=== PATIENT | female | born 1990 | race African-American/Black ===

== ENCOUNTER 2016-12-07 07:54 | Emergency (ER) | payer SELFPAY ==
[~2016-12-07] VITALS: Ht 175.3 cm; Wt 102.0 kg
[~2016-12-07 07:54] MED LIST: AMOXICILLIN500 MG OR; AMOXICILLIN500 MG PO; BACTRIM DS1 TAB OR; BACTRIM DS1 TAB PO; BENADRYL 50MG C50 MG OR; CALNA PO; CEPHALEXIN500 MG OR; CEPHALEXIN500 MG PO; CIPROFLOXACN500 MG PO; CLARITIN10 MG OR; DOXYCYC MONO100 MG OR; LORTAB 10-325 M1 TAB PO; LORTAB 5 OR; LORTAB 7.57.5 MG PO; LORTAB5 PO; MACRODANTIN100 MG OR; NAPROSYN500 MG PO; NO CURRENT MEDS; NO HOME MEDS; PENICILLN VK500 MG OR; PHENERGAN PO; PRENATA8 PO; PRENATAL VIT1 TAB OR; SULFACET SOD10 % OD; TYLENOL & COD12.5 ML PO; TYLENOL500 MG OR; ULTRAM50 M1 PO; ULTRAM50 MG OR; ULTRAM50 MG PO; ZITHROMAX250 MG PO; ZITHROMAX500 MG PO; ZOFRAN4 MG/TAB PO; ZPAK PO
[2016-12-07] MEDS ORDERED: MOTRIN800 MG PO (08:48)
[2016-12-07 08:54] VITALS: BP 116/82
== END 2016-12-07 09:00 | disposition home or self-care (01) | DRG 605 ==
LOC: ED 07:54
DX: S90.122A Contusion of left lesser toe(s) without damage to nail, initial encounter (principal); W22.8XXA Striking against or struck by other objects, initial encounter

== ENCOUNTER 2017-02-16 22:48 | Emergency (ER) | payer SELFPAY ==
[~2017-02-16] VITALS: Ht 175.3 cm; Wt 102.5 kg
[~2017-02-16 22:48] MED LIST changes: +MOTRIN800 MG PO
[2017-02-16] MEDS ORDERED: AUGMENTIN875TAB PO (23:23)
[2017-02-16 23:49] VITALS: BP 124/77
== END 2017-02-16 23:49 | disposition home or self-care (01) | DRG 153 ==
LOC: ED 22:48
DX: J02.9 Acute pharyngitis, unspecified (principal); R50.9 Fever, unspecified; R53.81 Other malaise

== ENCOUNTER 2017-03-06 18:50 | Emergency (ER) | payer BC ==
[~2017-03-06] VITALS: Ht 175.3 cm; Wt 106.2 kg
[~2017-03-06 18:50] MED LIST changes: +AUGMENTIN875TAB PO
[2017-03-06] MEDS ORDERED: BACTRIM DS1 TAB PO (19:55)
[2017-03-06] MEDS ORDERED: ULTRAM50 M1 PO (19:55)
[2017-03-06 20:00] VITALS: BP 106/74
== END 2017-03-06 20:00 | disposition home or self-care (01) | DRG 607 ==
LOC: ED 18:50
PROC: 0X940ZZ Drainage of Right Axilla, Open Approach (ICD-10-PCS; principal; 2017-03-06)
DX: L73.2 Hidradenitis suppurativa (principal)

== ENCOUNTER 2017-05-18 06:15 | Emergency (ER) | payer BC ==
[~2017-05-18] VITALS: Ht 175.3 cm; Wt 106.8 kg
[2017-05-18 07:29] LABS: URINE BILIRUBIN - DIPSTICK NEGATIVE (NEGATIVE); URINE BLOOD DIPSTICK NEGATIVE (NEGATIVE); URINE CLARITY CLEAR; URINE COLOR YELLOW; URINE GLUCOSE - DIPSTICK NEGATIVE (NEGATIVE); URINE KETONE NEGATIVE (NEGATIVE); URINE LEUK ESTERASE NEGATIVE (NEGATIVE); URINE NITRITE - DIPSTICK NEGATIVE (Negative); URINE PROTEIN - DIPSTICK NEGATIVE (NEG-TRACE); URINE SPECIFIC GRAVITY 1.025; URINE UROBILINOGEN - DIPSTICK 0.2 E.U./dL (0.2)
[2017-05-18 07:30] LABS: HEMATOCRIT 39.9 % (37.0-47.0); HEMOGLOBIN 12.8 g/dl (12.0-16.0); IMMATURE GRANULOCYTES 0.4 % (0.0-1.0); MEAN CELL VOLUME 82.8 fL CALC (80.0-100.0); MEAN CORPUSCULAR HGB 26.6 pG CALC (26.0-32.0); MEAN CORPUSCULAR HGB CONC 32.1 g/L CALC (32.0-36.0); NEUT# 5.5 thou/uL (2.00-7.15); RED BLOOD COUNT 4.82 mill/uL (4.20-5.60); RED CELL DISTRI WIDTH 13.5 % (11.5-15.5)
[2017-05-18 07:34] LABS: ALBUMIN 4.2 g/dL (3.2-5.0); ALKALINE PHOSPHATASE 60 u/l (38-126); AMYLASE 110 u/l (30-110); ANION GAP 13 (6-22 (CALC)); BILIRUBIN, TOTAL 0.4 mg/dL (0.0-1.4); BUN 15 mg/dL (7-17); BUN/CREATININE RATIO 21 (12-20 (CALC)); CALCIUM 9.3 mg/dL (8.4-10.2); CARBON DIOXIDE 25 mmol/l (22-30); CHLORIDE 107 mmol/l (95-108); CREATININE 0.7 mg/dL (0.5-1.0); GFR > 60 ML/MIN (>=60 (CALC)); GFR FOR AFR.AMER. > 60 ML/MIN (>=60 (CALC)); GLUCOSE 86 mg/dL (65-105); LIPASE 94 u/l (23-300); POTASSIUM 4.3 mmol/l (3.5-5.1); SGOT/AST 23 u/l (14-36); SGPT/ALT 34 u/l (9-52); SODIUM 141 mmol/l (137-146); TOTAL PROTEIN 7.9 g/dL (6.3-8.2)
[2017-05-18] MEDS ORDERED: COLACE100 MG PO (08:16)
[2017-05-18 08:23] VITALS: BP 127/82
== END 2017-05-18 08:30 | disposition home or self-care (01) | DRG 392 ==
LOC: ED 06:15
PROVIDERS: Emergency Medicine
DX: R10.13 Epigastric pain (principal); K59.00 Constipation, unspecified

== ENCOUNTER 2024-06-03 22:21 | Emergency (ER) | payer OTHER ==
[~2024-06-03] VITALS: Ht 175.3 cm; Wt 107.0 kg
[~2024-06-03 22:21] MED LIST changes: +COLACE100 MG PO
[2024-06-03] MEDS ORDERED: KETOROLAC TROMETHAMINE 30 MG/ML SDV IM ONE (22:35)
[2024-06-03] MEDS ORDERED: NAPROXEN500 MG PO (23:31)
[2024-06-03] MEDS ORDERED: METHOCARBAMOL500 MG PO (23:31)
[2024-06-03 23:43] VITALS: BP 141/90
== END 2024-06-03 23:56 | disposition home or self-care (01) ==
LOC: ED 22:21
DX: S76.911A Strain of unspecified muscles, fascia and tendons at thigh level, right thigh, initial encounter (principal); X50.0XXA Overexertion from strenuous movement or load, initial encounter; Y93.F9 Activity, other caregiving; Y92.199 Unspecified place in other specified residential institution as the place of occurrence of the external cause; Y99.0 Civilian activity done for income or pay

== ENCOUNTER 2024-08-01 22:01 | Emergency (ER) | payer OTHER ==
[~2024-08-01] VITALS: Ht 170.2 cm; Wt 109.1 kg
[~2024-08-01 22:01] MED LIST changes: +METHOCARBAMOL500 MG PO; +NAPROXEN500 MG PO
[2024-08-01 23:23] VITALS: BP 166/124
[2024-08-01 23:25] VITALS: BP 134/96
[2024-08-01 23:30] VITALS: BP 134/96
[2024-08-01] MEDS ORDERED: KEFLEX500 MG PO (23:59)
[2024-08-02] MEDS ORDERED: DEXTROSE 10% 500 ML BAG IV ONE (23:55)
== END 2024-08-02 00:50 | disposition home or self-care (01) ==
LOC: ED 22:01
DX: S61.210A Laceration without foreign body of right index finger without damage to nail, initial encounter (principal); W26.0XXA Contact with knife, initial encounter

== ENCOUNTER 2024-10-12 01:26 | Emergency (ER) | payer OTHER ==
[~2024-10-12] VITALS: Ht 170.2 cm; Wt 110.0 kg
[~2024-10-12 01:26] MED LIST changes: +KEFLEX500 MG PO
[2024-10-12 01:54] LABS: URINE BILIRUBIN - DIPSTICK Negative (NEGATIVE); URINE BLOOD DIPSTICK Negative (NEGATIVE); URINE GLUCOSE - DIPSTICK Negative (NEGATIVE); URINE KETONE Trace mg/dL (NEGATIVE); URINE LEUK ESTERASE Negative (NEGATIVE); URINE NITRITE - DIPSTICK Negative (Negative); URINE PROTEIN - DIPSTICK Negative (NEG-TRACE); URINE SPECIFIC GRAVITY 1.025; URINE UROBILINOGEN - DIPSTICK 0.2 E.U./dL (0.2)
[2024-10-12 01:56] LABS: URINE COLOR Yellow
[2024-10-12] MEDS ORDERED: NITROFURANTOIN100 M1 PO (01:59)
[2024-10-12] MEDS ORDERED: PHENAZOPYRIDINE HCL 100 MG/TAB PO ONE (02:20)
[2024-10-12] MEDS ORDERED: NITROFURANTOIN MONOHYDRATE/MAC (MACROBID) 100 MG/CAP PO ONE (02:20)
[2024-10-12 02:25] VITALS: BP 133/97
== END 2024-10-12 02:26 | disposition home or self-care (01) ==
LOC: ED 01:26
PROVIDERS: Family Medicine
DX: R30.0 Dysuria (principal)